=== PATIENT | female | born 1950 | race Caucasian/White ===

== ENCOUNTER 2019-04-13 20:17 | Emergency (ER) | payer OTHER ==
[~2019-04-13] VITALS: Ht 160 cm; Wt 92.5 kg
[2019-04-13 20:23] VITALS: Ht 160 cm; Wt 92.5 kg
[2019-04-13 21:00] VITALS: BP 158/84
== END 2019-04-13 21:54 | disposition home or self-care (01) ==
LOC: ED 20:17
DX: S00.03XA Contusion of scalp, initial encounter (principal); Z90.710 Acquired absence of both cervix and uterus; W18.2XXA Fall in (into) shower or empty bathtub, initial encounter; Y93.89 Activity, other specified; Y92.091 Bathroom in other non-institutional residence as the place of occurrence of the external cause; Y99.8 Other external cause status